=== PATIENT | male | born 1965 | race Caucasian/White ===

== ENCOUNTER 2019-12-26 06:36 | Day surgery (SDC) | payer BC ==
[~2019-12-26 06:36] MED LIST: Sodium Chloride 0.9% 1,000 ML IV SCH
[2019-12-26] MEDS ORDERED: Propofol 200 MG/20 ML SDV ONE (07:20)
[2019-12-26] MEDS ORDERED: fentaNYL 100 MCG/2 ML SDV ONE (07:21)
[2019-12-26] MEDS ORDERED: Midazolam 1 MG/ML 2 ML SDV ONE (07:21)
[2019-12-26 09:26] VITALS: PULSE 61
[2019-12-26 09:34] VITALS: BP 135/92
--- NOTE | 2019-12-26 11:55 | PROC ---
DATE OF PROCEDURE: 12/26/2019 SURGEON: Keo Curran MD PROCEDURE: Colonoscopy. PRE-PROCEDURE DIAGNOSIS: History of colon polyps. POSTPROCEDURE DIAGNOSIS: 1. History of colon polyps. 2. Small rectal polyp removed using biopsy forceps. DESCRIPTION OF PROCEDURE: Risks and goals of the procedure reviewed with the patient, and he gave informed consent to proceed. He was brought back to the endoscopy room. Sedation monitoring provided by Vahe Debra. He was placed in a left lateral decubitus position. Time-out was held prior to the procedure to confirm right patient, right side, right procedure, and to identify any concerns of which there were none. After adequate sedation was achieved, digital rectal exam was performed, which was unremarkable. Following this, a flexible colonoscope was placed and advanced out through the colon to the cecum. The scope was then slowly withdrawn through the length of the colon to the rectum where it was retroflexed, straightened, and removed. He was found to have a 0.2-cm polyp in the rectum, which was removed using biopsy forceps. There were no other mucosal polyps, masses, or lesions seen, and the procedure was otherwise completed without complication. He will be monitored in [facility] in outpatient area until fully recovered from IV sedation, then discharged to home. Pathologic review of the biopsy specimen is pending at this time. Keo Curran MD /[id number]
--- NOTE | 2020-01-02 15:23 | LETTER ---
01/02/2020 Mr. Gary Varma [id number] [address] RE: GARY VARMA LUTHER : 1965 Dear Mr. Varma: This letter concerns results of the polyp removed at the time of your colonoscopy last week. Polyp was found to be hyperplastic, which is entirely benign and carries no increased risk of colon cancer. Because of your previous history of colon polyps, I would recommend you have a followup colonoscopy again in 5 years. If you have any questions concerning this result or recommendations, please feel free to contact me. Sincerely, /[id number]
== END 2019-12-26 09:40 | disposition home or self-care (01) ==
LOC: JP.SDS 06:36
PROVIDERS: ATTEND Hospitalist
DX: Z12.11 Encounter for screening for malignant neoplasm of colon (principal); K62.1 Rectal polyp; Z86.010 Personal history of colon polyps; Z87.891 Personal history of nicotine dependence
CPT/HCPCS: 45380; J2250; J2704; J3010; J7030; 88305

== ENCOUNTER 2023-01-02 06:10 | Day surgery (SDC) | payer BC ==
[2023-01-02] MEDS ORDERED: Lactated Ringers 1,000 ML IV SCH (06:30)
[2023-01-02] MEDS ORDERED: fentaNYL 50 MCG/ML SDV ONE (07:16)
[2023-01-02] MEDS ORDERED: Propofol 200 MG/20 ML SDV ONE (07:16)
[2023-01-02] MEDS ORDERED: Midazolam 1 MG/ML 2 ML SDV ONE (07:16)
[2023-01-02 08:52] VITALS: BP 129/83; PULSE 80
== END 2023-01-02 08:57 | disposition home or self-care (01) ==
LOC: JP.SDS 06:10
PROVIDERS: ATTEND Student in an Organized Health Care Education/Training Program
DX: K52.9 Noninfective gastroenteritis and colitis, unspecified (principal)
CPT/HCPCS: J2250; J2704; J3010; J7120